=== PATIENT | female | born 1955 | race Caucasian/White ===

== ENCOUNTER → 2016-11-26 | Day surgery (SDC) | payer OTHER ==
[~2016-11-26] VITALS: Ht 160 cm; Wt 60.0 kg
[~2016-11-26] MED LIST: 0.9% Sodium Chloride 1,000 ML IV PRN; ALBU8.5H2 INHALATION; BECL8.7A6 INHALATION; CITA20TA PO; MESA1.2T2 PO; Sodium Chloride LOK Flush 10 mL Syringe IV PRN; [UNRECOGNIZED DRUG - CODE] RC; fentaNYL-PF 50 mCg/mL 2 mL Inj IVPUSH PRN; vitamins
[2016-11-26 10:20] VITALS: BP 117/71; PULSE 64; RESP 16; O2SAT 99
[2016-11-26 11:08] VITALS: BP 109/73; PULSE 60; RESP 14; O2SAT 99
[2016-11-26 11:18] VITALS: BP 103/60; PULSE 55; O2SAT 99
--- NOTE | 2016-11-26 14:25 | ENDO ---
[address] [address] ENDOSCOPY PROCEDURE PATIENT: BONNIE FLOOD : 1955 MR#: [id number] ADMIT: 11/26/2016 JOB ID: [id number] DATE OF SERVICE: 11/26/2016 PROCEDURE PERFORMED: Colonoscopy. INDICATIONS: Patient with a history of ulcerative proctosigmoiditis. ASA CLASSIFICATION: The patient's ASA classification is II. MALLAMPATI SCORE: Mallampati score was 2. MEDICATIONS: 1. Versed 4 mg. 2. Fentanyl 75 mcg. INSTRUMENT USED: PCF-H180AL. PREPARATION QUALITY: Fair. PROCEDURE DETAILS: After informed consent was obtained, the patient was brought into the GI suite, where she was placed on oxygen via nasal cannula and monitored with continuous pulse oximeter, telemetry and blood pressure monitoring. A time-out was performed. Then, she was placed in the left lateral decubitus position and medications were administered for sedation. Digital rectal exam was performed which was unremarkable. The colonoscope was then inserted into the rectum and advanced under direct visualization to the cecum, which was identified by the presence of the ileocecal valve and appendiceal orifice. Once the cecum was reached, the colonoscope was withdrawn back into the rectum, as the mucosa and lumen were examined. In the rectum, retroflexion was performed. Following retroflexion, remaining air in the rectum was suctioned, and procedure was completed. FINDINGS: 1. Starting at approximately 35 cm from the anal verge and extending to the rectum, the mucosa had a granular appearance. It was erythematous and friable with loss of normal vascular pattern. Multiple random biopsies were obtained. The colon proximal to 35 cm appeared normal. Multiple random biopsies were obtained throughout the entire colon. 2. Retroflexed views in the rectum revealed inflammation in the rectum as described above. 3. In the ascending colon, there were two polyps that measured 3-4 mm. Both polyps were removed using a cold snare. IMPRESSION: 1. Ulcerative proctosigmoiditis. 2. Two ascending colon polyps. RECOMMENDATIONS: 1. Increase Lialda to 4.8 g daily. 2. Follow up in GI clinic in 2-4 weeks. COMPLICATIONS: None. ESTIMATED BLOOD LOSS: Less than 5 mL. MTDD
--- NOTE | 2016-11-30 19:03 | PATH ---
SURGICAL PATHOLOGY Attending Physician:Jaja Ruvalcaba CASE STATUS: Signed Out PATIENT NAME: BONNIE FLOOD PID: [id number] : 1955 DATE COLLECTED:11/26/2016 19:44 SPECIMEN: 1: Colon, Polyp 2: Colon, Biopsy 3: Colon, Biopsy 4: Colon, Biopsy 5: Rectum, Biopsy CLINICAL HISTORY: 1). ASCENDING COLON POLYPS 2). RIGHT COLON BIOPSY 3). TRANSVERSE COLON BIOPSY 4). LEFT COLON BIOPSY 5). RECTUM BIOPSY FINAL DIAGNOSIS: 1. Ascending Colon Polyps, Biopsies: Tubular adenoma (3 of 3 pieces). 2-3. Right, Transverse Colon, Biopsies: Colonic mucosa with no significant diagnostic abnormality. Negative for active inflammation, granulomata, dysplasia or malignancy. 3. Left Colon, Biopsy: Chronic colitis with moderate activity. Negative for granulomata, dysplasia or malignancy. 4. Rectum, Biopsy: Chronic colitis with mild activity. Negative for granulomata, dysplasia or malignancy. ICD10: D12.2 K52.9 GROSS DESCRIPTION: The specimen is received in five formalin filled containers labeled with the patient's name. 1). The specimen is labeled "ascending colon polyps" and consists of 3 portions of tissue which aggregate to 0.3 x 0.3 x 0.3 CM. The specimen is entirely submitted in cassette 1A. 2). The specimen is labeled "right colon" and consists of multiple portions of tissue which aggregate to 0.3 x 0.3 x 0.2 CM. The specimen is entirely submitted in cassette 2A. 3). The specimen is labeled "transverse colon" and consists of multiple portions of tissue which aggregate to 0.3 x 0.2 x 0.2 CM the specimen is entirely submitted in cassette 3A. 4). The specimen is labeled "left colon" and consists of multiple portions of tissue which aggregate to 0.4 x 0.4 x 0.2 CM. The specimen is entirely submitted in cassette 4A. 5). The specimen is labeled "rectal" and consists of multiple portions of tissue which aggregate to 0.4 x 0.3 x 0.2 CM. The specimen is totally submitted in cassette 5A. 11/26/2016DC ICD-9 CODES: CPT CODES: 1: 43060 2: 96981 3: 16361 4: 37381 5: 40254 Electronically Signed Out Wayne Escobedo MD, Ph.D. [facility] [address], [place] [address] Technical component performed at [facility], [address], [place], [address]
== END | disposition home or self-care (01) ==
LOC: END 00:41
PROVIDERS: ATTEND Internal Medicine Gastroenterology
DX: K51.30 Ulcerative (chronic) rectosigmoiditis without complications (principal); D12.2 Benign neoplasm of ascending colon; K52.9 Noninfective gastroenteritis and colitis, unspecified; F41.9 Anxiety disorder, unspecified
CPT/HCPCS: 45380; 45385; 99153; G0500; J2250; J3010; J7030